=== PATIENT | female | born 1955 | race Caucasian/White ===

== ENCOUNTER 2019-06-18 00:56 | Outpatient (CLI) | payer MEDICARE, MEDICAID, SELFPAY ==
--- NOTE | 2019-06-18 11:15 | DI.CTLCSR_ITS ---
SYMPTOM/DIAGNOSIS: H/O TOBACCO ABUSE, F17.[address]: CT examination of the chest was performed utilizing low dose lung cancer screening protocol. Images obtained through the upper abdomen show unremarkable appearance of visualized portions of liver, spleen, adrenals, kidneys and pancreas. There is diffuse centrilobular emphysema. Tracheobronchial tree appears intact. No mediastinal or hilar adenopathy. No pleural effusion. There is a 3 mm. right middle lobe, non calcified, well circumscribed pulmonary nodule. No additional nodule is seen. CONCLUSION: Benign appearance, Category 2. Continue annual screening with LDCT in 12 months. Lung-RAD Category: Lung RADS Category 2- Benign Appearance/Behavior
== END 2019-06-18 01:16 ==
PROVIDERS: PCP Nurse Practitioner; Visit Provider Nurse Practitioner
DX: Z12.2 Encounter for screening for malignant neoplasm of respiratory organs (principal); F17.210 Nicotine dependence, cigarettes, uncomplicated; J43.9 Emphysema, unspecified; R91.1 Solitary pulmonary nodule
CPT/HCPCS: G0297